=== PATIENT | female | born 1965 | race Caucasian/White ===

== ENCOUNTER → 2019-12-20 09:32 | Outpatient (BNVA) | payer MEDICAID, SELFPAY | PROVIDERS: Referring Provider Nurse Practitioner Primary Care; Visit Provider Surgery Vascular Surgery | DX: M79.605 Pain in left leg (principal) | CPT/HCPCS: 99212 ==

== ENCOUNTER → 2020-02-17 14:56 | Outpatient (BNVA) | payer MEDICAID, SELFPAY | PROVIDERS: PCP Nurse Practitioner Primary Care; Visit Provider Physician Assistant Medical | DX: Z76.89 Persons encountering health services in other specified circumstances (principal) | CPT/HCPCS: G0296 ==

== ENCOUNTER 2020-03-01 09:31 | Outpatient (REF) | payer MEDICAID, SELFPAY ==
--- NOTE | 2020-03-01 09:35 | CT_ITS ---
EXAMINATION: CT CHEST SCREENING CLINICAL INFORMATION: Nicotine dependence. COMPARISON: Chest 04/02/2019. TECHNIQUE: Multidetector volumetric CT imaging of the chest is performed without contrast using low dose technique. Additional 2D coronal and sagittal reformatted images and axial 3D maximum intensity projection (MIP) images are generated on the CT workstation. This CT examination was performed using dose optimization techniques as appropriate, variously including the following: *Automated exposure control *Adjustment of mA and/or kV according to patient size (this includes techniques or standardized protocols for targeted exams where dose is matched to indication/reason for exam; i.e. extremities or head) *Use of iterative reconstruction technique DLP: 47 mGy-cm FINDINGS: LUNGS: The lungs are clear with no evidence of inflammation or nodules. MEDIASTINUM: The heart size and great vessels are normal in caliber. No pericardial effusion seen. Central trachea and the bronchi are widely patent. Trace calcification of coronary arteries is noted. PLEURA: There is no pleural effusion. No pleural mass or thickening. AXILLA: No lymphadenopathy. UPPER ABDOMEN: Visualized liver, spleen, pancreas and bilateral adrenal glands are unremarkable. OSSEOUS STRUCTURES: No lytic or sclerotic process seen. There is mild ventral spondylosis dorsal and lumbar spine. CT/CT lung screening IMPRESSION: No pulmonary nodule, mass or consolidation seen. There are coronary artery caliectasis present. ASSESSMENT: Lung-RADS category 1: Negative RECOMMENDATION: Low dose annual CT chest
== END 2020-03-01 09:32 | disposition home or self-care (01) ==
LOC: HO.CT 09:31
PROVIDERS: PCP Nurse Practitioner Primary Care; Visit Provider Physician Assistant Medical
DX: Z12.2 Encounter for screening for malignant neoplasm of respiratory organs (principal); F17.210 Nicotine dependence, cigarettes, uncomplicated
CPT/HCPCS: 71271

== ENCOUNTER 2020-03-09 08:17 | Outpatient (REF) | payer MEDICAID, SELFPAY ==
--- NOTE | 2020-03-09 08:21 | MM_ITS ---
EXAMINATION: BONE DENSITOMETRY CLINICAL INDICATION: Encounter for screening for osteoporosis. Vitamin D deficiency. COMPARISON: None (current study represents initial baseline exam). TECHNIQUE: Using a [employer] DXA System (software version: 13.1) manufactured by [employer], dual-energy x-ray absorptiometry was performed of the lumbar spine and left hip. The images are of good technical quality. Summary results are attached. FINDINGS: AP SPINE L2-L4 (L3) (excluding L1 and L3): The data of L1-L4 has been changed to exclude the L1 and L3 vertebral bodies, because probable degenerative changes at these levels may cause overestimation of lumbar spine density. BMD 1.346 g/cm2, Z-score 2.3, T-score 1.2, normal. LEFT FEMUR, NECK: BMD 0.984 g/cm2, Z-score 0.8, T-score -0.4, normal. LEFT FEMUR, TOTAL: BMD 1.080 g/cm2, Z-score 1.4, T-score 0.6, normal. IDENTIFIED RISK FACTORS: Height loss. Osteoporosis. Menopause. Smoker. HISTORY OF FRACTURE: None listed. MEDICATIONS: Calcium or multivitamin. Vitamin D. MM/XR DEXA axial skeleton IMPRESSION: 1. DIAGNOSIS: Normal bone density based on the lowest T-score value of -0.4 in the femoral neck applying World Health Organization criteria. 2. 10-YEAR FRACTURE RISK PREDICTION, FRAX: According to the guidelines, FRAX calculation should only be performed on patients in the osteopenia bone density category. Therefore, FRAX was not performed on this patient. 3. Treatment Recommendations: NOF guidelines recommend consideration for treatment in postmenopausal women and men age 50 and older presenting with the following: -A hip or vertebral (clinical or morphometric) fracture. -T-score less than or equal to -2.5 at the femoral neck or spine after appropriate evaluation to exclude secondary causes. -Low bone mass at the hip or spine and a 10-year fracture probability by FRAX of greater than or equal to 3% for hip fracture or greater than or equal to 20% for major osteoporotic fracture based on the [place] adapted WHO algorithm. 4. Other Recommendations: All treatment decisions require clinical judgment and consideration of individual patient factors, including patient preferences, comorbidities, previous drug use, risk factors not captured in the FRAX model (e.g. frailty, falls, vitamin D deficiency, increased bone turnover, interval significant decline in bone density) and possible under or overestimation of fracture risk by FRAX. FUTURE SCAN RECOMMENDATION: People with diagnosed cases of osteoporosis or at high risk for fracture should have regular bone mineral density tests. For patients eligible for Medicare, routine testing is allowed once every 2 years. The testing frequency can be increased to one year for patients who have rapidly progressing disease, those who are receiving or discontinuing medical therapy to restore bone mass, or have additional risk factors.
== END 2020-03-09 08:18 | disposition home or self-care (01) ==
LOC: HO.MAMMO 08:17
PROVIDERS: PCP Nurse Practitioner Primary Care; Visit Provider Nurse Practitioner Primary Care
DX: Z13.820 Encounter for screening for osteoporosis (principal); Z78.0 Asymptomatic menopausal state; E55.9 Vitamin D deficiency, unspecified; F17.200 Nicotine dependence, unspecified, uncomplicated
CPT/HCPCS: 77080

== ENCOUNTER 2020-07-24 16:42 | Outpatient (REF) | payer MEDICAID, SELFPAY ==
--- NOTE | ~2020-07-24 | XR_ITS ---
EXAMINATION: LEFT SHOULDER AND LEFT WRIST. CLINICAL INFORMATION: Post fall. COMPARISON: None TECHNIQUE: 3 views left shoulder and 4 views left wrist. FINDINGS: Left shoulder: Is a small bone fragment along the inferior glenoid process likely a small avulsion injury. Otherwise the glenohumeral joint space and the AC joint space is maintained normal. There is minimal periarticular spurring left AC joint. The soft tissues are normal. Left wrist: There is no visible acute fracture, dislocation or subluxation seen. Mild loss of first carpometacarpal joint space with hypertrophic bony changes are noted likely degenerative changes. XR/XR shoulder LT min 2V IMPRESSION: Small avulsion fracture along the inferior glenoid. Mild degenerative changes left AC joint. No acute fracture dislocation left wrist. Mild first carpometacarpal joint space degenerative changes.
--- NOTE | ~2020-07-24 | XR_ITS ---
EXAMINATION: LEFT SHOULDER AND LEFT WRIST. CLINICAL INFORMATION: Post fall. COMPARISON: None TECHNIQUE: 3 views left shoulder and 4 views left wrist. FINDINGS: Left shoulder: Is a small bone fragment along the inferior glenoid process likely a small avulsion injury. Otherwise the glenohumeral joint space and the AC joint space is maintained normal. There is minimal periarticular spurring left AC joint. The soft tissues are normal. Left wrist: There is no visible acute fracture, dislocation or subluxation seen. Mild loss of first carpometacarpal joint space with hypertrophic bony changes are noted likely degenerative changes. XR/XR wrist LT min 3V IMPRESSION: Small avulsion fracture along the inferior glenoid. Mild degenerative changes left AC joint. No acute fracture dislocation left wrist. Mild first carpometacarpal joint space degenerative changes.
== END 2020-07-24 16:43 | disposition home or self-care (01) ==
LOC: HO.XRAY 16:42
PROVIDERS: PCP Nurse Practitioner Primary Care; Visit Provider Nurse Practitioner Primary Care
DX: M25.532 Pain in left wrist (principal); M25.512 Pain in left shoulder
CPT/HCPCS: 73030; 73110

== ENCOUNTER → 2020-08-24 10:08 | Outpatient (BNVA) | payer MEDICAID, SELFPAY | PROVIDERS: PCP Nurse Practitioner Primary Care; Visit Provider Physician Assistant | DX: M75.82 Other shoulder lesions, left shoulder (principal) | CPT/HCPCS: 20610; 99202; J1040 ==

== ENCOUNTER → 2020-09-12 09:50 | Outpatient (BNVA) | payer MEDICAID, SELFPAY | PROVIDERS: Visit Provider Orthopaedic Surgery | DX: M18.12 Unilateral primary osteoarthritis of first carpometacarpal joint, left hand (principal); R20.0 Anesthesia of skin; R20.2 Paresthesia of skin | CPT/HCPCS: 99202 ==

== ENCOUNTER 2020-09-13 10:55 | Outpatient (RCR) | payer MEDICAID, SELFPAY ==
--- NOTE | 2020-10-01 13:34 | MHC.PT.DC ---
[facility] [place] Office [place] Office [place] Office [address] Baldemar Grace [address] [phone] F: [phone] F: [phone] F: [phone] F: [phone] Physical Therapy Discharge Report Diagnosis: L shoulder lesion Date of Surgery: Date of Evaluation: 09/13/20 Date of Discharge: 10/01/20 Treatments to Date: 1 Cancellations to Date: 3 No Shows to Date: 2 Discharge Status: Visit Non-compliance Discharge Summary: After her initial evaluation Pt logged 3 cancellations and 2 no show apts. Pt is considered to not have attempted therapy to address her shoulder with poor interest on eval. Electronically signed by: Peterson Renteria PT Please sign and return to therapist. Thank you for your referral.
== END 2020-10-01 13:35 | disposition home or self-care (01) ==
LOC: HO.PTCHIC 10:55
PROVIDERS: PCP Nurse Practitioner Primary Care; Visit Provider Physician Assistant
DX: M75.82 Other shoulder lesions, left shoulder (principal)
CPT/HCPCS: 97110; 97161

== ENCOUNTER 2020-09-24 11:10 | Outpatient (REF) | payer MEDICAID, SELFPAY ==
--- NOTE | ~2020-09-24 | XR_ITS ---
EXAMINATION: XR HIP, LEFT CLINICAL INFORMATION: Left hip pain. COMPARISON: None. TECHNIQUE: 2 views of the left hip. FINDINGS: No acute fracture or dislocation. Mild left hip joint space narrowing with small marginal osteophytes and superior acetabular subchondral cystic change. Phleboliths within the pelvis. XR/XR hip LT min 2V IMPRESSION: Mild left hip osteoarthritis.
== END 2020-09-24 11:11 | disposition home or self-care (01) ==
LOC: HO.XRAY 11:10
PROVIDERS: PCP Nurse Practitioner Primary Care; Visit Provider Nurse Practitioner Primary Care
DX: M25.50 Pain in unspecified joint (principal); M25.552 Pain in left hip
CPT/HCPCS: 73502

== ENCOUNTER 2021-04-03 15:23 | Outpatient (REF) | payer MEDICAID, SELFPAY ==
--- NOTE | ~2021-04-03 | US_ITS ---
EXAMINATION: US THYROID CLINICAL INFORMATION: Nontoxic multinodular goiter. COMPARISON: None TECHNIQUE: Linear transducer grayscale and color Doppler examination with attention to the region of the thyroid. FINDINGS: SIZE: Measurements of the thyroid lobes and nodules are given in sagittal, anteroposterior and transverse dimensions respectively. Right Thyroid Lobe: 5.9 x 2.4 x 2.8 cm, volume 20.7 mL. Parenchyma: The gland echotexture is heterogeneous. Thyroid vascularity is increased. Left Thyroid Lobe: 6.2 x 2.9 x 3.3 cm, volume 31.0 mL. Parenchyma: The gland echotexture is heterogeneous. Thyroid vascularity is increased. Isthmus: 0.7 cm in maximum AP dimension. Estimated total number of nodules greater than or equal to 1 cm: 2. Digital [employer] nodules are described as follows: 1. Location: Right superior. Size: 0.8 x 0.6 x 0.9 cm, volume 0.2 mL. Nodule characteristics: Composition: Mixed cystic and solid (1). Echogenicity: Isoechoic (1). Shape: Not taller than wide (0). Margins: Smooth (0). Echogenic Foci: None (0). ACR TI-RADS total points: 2 ACR TI-RADS category: 2 2. Location: Right mid. Size: 0.8 x 0.6 x 0.7 cm, volume 0.17 mL. Nodule characteristics: Composition: Solid/almost completely solid (2). Echogenicity: Isoechoic (1). Shape: Not taller than wide (0). Margins: Smooth (0). Echogenic Foci: None (0). ACR TI-RADS total points: 3 ACR TI-RADS category: 3 3. Location: Right mid. Size: 0.9 x 0.7 x 1.1 cm, volume 0.36 mL. Nodule characteristics: Composition: Solid (2). Echogenicity: Hyperechoic (1). Shape: Not taller than wide (0). Margins: Smooth (0). Echogenic Foci: None (0). ACR TI-RADS total points: 3 ACR TI-RADS category: 3 4. Location: Right mid. Size: 0.7 x 0.6 x 0.7 cm, volume 0.16 mL. Nodule characteristics: Composition: Mixed cystic and solid (1). Echogenicity: Isoechoic (1). Shape: Not taller than wide (0). Margins: Smooth (0). Echogenic Foci: None (0). ACR TI-RADS total points: 2 ACR TI-RADS category: 2 5. Location: Left mid. Size: 0.8 x 0.7 x 1.0 cm, volume 0.3 mL. Nodule characteristics: Composition: Solid (2). Echogenicity: Hypoechoic (2). Shape: Not taller than wide (0). Margins: Smooth (0). Echogenic Foci: None (0). ACR TI-RADS total points: 4 ACR TI-RADS category: 4 NODES: No lymphadenopathy is seen in the tissue surrounding the thyroid gland. US/US thyroid IMPRESSION: Small subcentimeter nonsuspicious nodules. Recommend continued follow-up. ACR TI-RADS RECOMMENDATION REFERENCE: Ultrasound-guided fine-needle aspiration, followup ultrasound, no further follow up. * TR1 (0 point) and TR 2 (2 points): No FNA or follow up * TR3 (3 points): FNA if more than or equal to 2.5 cm in maximum dimension, followup ultrasound in 1, 3 and 5 years if 1.5 to 2.4 cm in maximum dimension. * TR4 (4-6 points): FNA if more than or equal to 1.5 cm in maximum dimension, followup ultrasound in 1, 2, 3 and 5 years if 1 to 1.4 cm in maximum dimension. * TR5 (more than or equal to 7 points): FNA if more than or equal to 1 cm in maximum dimension, followup ultrasound every year for 5 years if 0.5 to 0.9 cm in maximum dimension. * TR3, TR4 or TR5 nodules that are below the size threshold for follow up receive no follow up.
== END 2021-04-03 15:24 | disposition home or self-care (01) ==
LOC: HO.US 15:23
PROVIDERS: PCP Nurse Practitioner Primary Care; Visit Provider Nurse Practitioner Primary Care
DX: E04.2 Nontoxic multinodular goiter (principal)
CPT/HCPCS: 76536; 99202